=== PATIENT | female | born 1975 | race Caucasian/White ===

== ENCOUNTER → 2017-03-11 | Outpatient (CLI) | payer OTHER ==
[~2017-03-11] MED LIST: ACET50TA PO; FERR325T3 PO; IBUP60TA PO; PREN27TA3 PO; RANI15TA PO
--- NOTE | 2017-03-11 10:20 | REP ---
Bilateral screening digital mammogram: Comparison is 06/16/2014. There are no palpable abnormalities or other breast complaints. The patient states she/he had a clinical breast exam in 01/2017. The patient has a Tyrer-Cuzick lifetime risk of malignancy of 20.4%. Therefore, consideration might be given to breast MRI. Biannual breast MRI could be alternated with biannual mammography. MRS INFORMATION HERE There is moderately dense heterogeneous breast parenchyma. The breast density has slightly decreased. There are benign calcifications. There has been no interval development of masses, areas of structural distortion or clusters of microcalcifications typical of malignancy. Impression: There is no evidence of malignancy. BI-RADS category 2 benign findings. Lifetime risk of breast malignancy is 20.4% as discussed above, therefore, periodic breast MRI might also be considered as discussed above. Consider alternating breast MRI every other year with mammography in the intervening years. This mammogram was interpreted with the aid of an FDA-approved computer-aided detection system. A. Negative x-ray reports should not delay biopsy if a dominant or clinically suspicious mass is present. B. Not all breast cancers are identified by x-ray. C. Adenosis and dense breasts may obscure an underlying neoplasm. The patient letter being requested is M1.
== END ==
LOC: M WHC 08:57
PROVIDERS: ATTEND Obstetrics & Gynecology
DX: Z12.31 Encounter for screening mammogram for malignant neoplasm of breast (principal)

== ENCOUNTER → 2023-06-22 | Outpatient (REF) | payer OTHER ==
[~2023-06-22] MED LIST changes: -ACET50TA PO; +IBUP600T42 PO; -IBUP60TA PO; +MAPA500T2 PO
[2023-06-22 13:38] LABS: THYROID STIMULATING HORMONE 1.974 uIU/ML (0.55-4.78)
[2023-06-22 13:40] LABS: FREE T4 1.04 NG/DL (0.89-1.76)
[2023-06-22 13:42] LABS: ALBUMIN 3.6 G/DL (3.2-5.2); ALKALINE PHOSPHATASE 69 U/L (46-116); ALT/SGPT 43 U/L (7.0-40); AST/SGOT 26 U/L (<34); BILIRUBIN,TOTAL 0.7 MG/DL (0.3-1.2); BLOOD UREA NITROGEN 11 MG/DL (9-23); CALCIUM LEVEL 8.6 MG/DL (8.5-10.1); CARBON DIOXIDE LEVEL 28 MMOL/L (20-31); CHLORIDE LEVEL 106 MMOL/L (98-107); CHOLESTEROL LEVEL 169 MG/DL (<200); CHOLESTEROL RISK RATIO 5.28 (<5); CREATININE FOR GFR 0.67 MG/DL (0.55-1.30); GLOMERULAR FILTRATION RATE > 60.0 (>58); GLUCOSE, FASTING 96 MG/DL (60-100); LDL CHOLESTEROL 90.2 MG/DL (<100); POTASSIUM SERUM 4.5 MMOL/L (3.5-5.1); SODIUM LEVEL 139 MMOL/L (136-145); TOTAL PROTEIN 6.8 G/DL (5.7-8.2); TRIGLYCERIDES LEVEL 234 MG/DL (<150)
== END ==
LOC: M LAB REF 11:36
PROVIDERS: ATTEND Family Medicine Addiction Medicine
DX: I10 Essential (primary) hypertension (principal)

== ENCOUNTER → 2023-08-12 | Outpatient (REF) | payer OTHER | LOC: M SFHCWAGY 18:16 | PROVIDERS: ATTEND Nurse Practitioner Family | DX: Z12.4 Encounter for screening for malignant neoplasm of cervix (principal) ==

== ENCOUNTER → 2023-08-26 | Outpatient (CLI) | payer OTHER | LOC: M PLALAB 08:40 | PROVIDERS: ATTEND Nurse Practitioner Family | DX: Z80.3 Family history of malignant neoplasm of breast (principal); Z80.0 Family history of malignant neoplasm of digestive organs ==

== ENCOUNTER → 2023-08-26 | Outpatient (CLI) | payer OTHER | LOC: M WHC 08:37 | PROVIDERS: ATTEND Nurse Practitioner Family | DX: Z12.31 Encounter for screening mammogram for malignant neoplasm of breast (principal) ==

== ENCOUNTER → 2023-10-15 | Outpatient (REF) | payer OTHER ==
[2023-10-15 13:43] LABS: THYROID STIMULATING HORMONE 2.905 uIU/ML (0.55-4.78)
[2023-10-15 13:46] LABS: FREE T4 0.85 NG/DL (0.89-1.76)
[2023-10-15 13:53] LABS: ALBUMIN 3.6 G/DL (3.2-5.2); ALKALINE PHOSPHATASE 75 U/L (46-116); ALT/SGPT 42 U/L (7.0-40); AST/SGOT 24 U/L (<34); BLOOD UREA NITROGEN 12 MG/DL (9-23); CALCIUM LEVEL 9.3 MG/DL (8.5-10.1); CARBON DIOXIDE LEVEL 27 MMOL/L (20-31); CHLORIDE LEVEL 106 MMOL/L (98-107); CHOLESTEROL LEVEL 188 MG/DL (<200); CHOLESTEROL RISK RATIO 4.66 (<5); GLOMERULAR FILTRATION RATE > 60.0 (>58); GLUCOSE, FASTING 95 MG/DL (60-100); HDL CHOLESTEROL 40.3 MG/DL (>40); LDL CHOLESTEROL 115.3 MG/DL (<100); NON-HDL-C 147.7 MG/DL; POTASSIUM SERUM 4.5 MMOL/L (3.5-5.1); SODIUM LEVEL 138 MMOL/L (136-145); TOTAL PROTEIN 6.7 G/DL (5.7-8.2); TRIGLYCERIDES LEVEL 162 MG/DL (<150)
== END ==
LOC: M LAB REF 12:57
PROVIDERS: ATTEND Family Medicine Addiction Medicine
DX: I10 Essential (primary) hypertension (principal)

== ENCOUNTER → 2023-12-16 | Outpatient (CLI) | payer OTHER | LOC: M RAD 09:34 | PROVIDERS: ATTEND Physician Assistant | DX: R05.3 Chronic cough (principal) ==

== ENCOUNTER 2024-03-22 15:30 | Emergency (ER) | payer OTHER ==
[~2024-03-22] VITALS: Ht 170.2 cm; Wt 130.5 kg
[2024-03-22 15:39] VITALS: TEMP 98.9
[2024-03-22] MEDS ORDERED: MORPHINE 2 MG/ML 1ML VIAL IV PRN (15:50)
[2024-03-22] MEDS: ONDANSETRON 4MG 2ML VIAL IV ONE (15:50)
[2024-03-22 15:52] LABS: BASO # 0.1 10^3/uL (0.0-0.2); BASO % 0.6 % (0.0-1.0); EOS # 0.1 10^3/uL (0.0-0.5); EOS % 1.7 % (0.0-3.0); HEMATOCRIT 40.4 % (36.0-47.0); HEMOGLOBIN 13.6 g/dl (12.0-15.5); LYMPH % 35.5 % (24.0-44.0); MEAN CORPUSCULAR HEMOGLOBIN 29.4 pg (27.0-33.0); MEAN CORPUSCULAR HGB CONC 33.7 g/dl (32.0-36.5); MEAN CORPUSCULAR VOLUME 87.4 fl (80.0-96.0); MONO # 0.6 10^3/uL (0.0-0.8); MONO % 6.9 % (2.0-8.0); NEUTROPHILS # 4.6 10^3/uL (1.5-8.5); NEUTROPHILS % 54.9 % (36.0-66.0); PLATELET COUNT, AUTOMATED 260 10^3/uL (150-450); RED BLOOD COUNT 4.62 10^6/uL (4.00-5.40); WHITE BLOOD COUNT 8.4 10^3/uL (4.0-10.0)
[2024-03-22] MEDS ORDERED: ISOVUE-370 76% 100ML VIAL As Ordered ONE (15:54)
[2024-03-22] MEDS: NS (Normal Saline) 0.9% 1,000 ML IV ONE (15:54)
[2024-03-22 16:16] LABS: LIPASE 34 U/L (12-53)
[2024-03-22 16:17] LABS: CK-MB VALUE MASS 2.3 NG/ML (<3.6)
[2024-03-22 16:18] LABS: ALBUMIN 4.1 G/DL (3.2-5.2); ALKALINE PHOSPHATASE 82 U/L (35-104); ALT/SGPT 29 U/L (7.0-40); AMYLASE 81 U/L (30-118); AST/SGOT 21 U/L (<34); BILIRUBIN,DIRECT 0.2 MG/DL (<0.4); BILIRUBIN,TOTAL 0.8 MG/DL (0.3-1.2); BLOOD UREA NITROGEN 11 MG/DL (9-23); CALCIUM LEVEL 9.4 MG/DL (8.5-10.1); CARBON DIOXIDE LEVEL 24 MMOL/L (20-31); CHLORIDE LEVEL 104 MMOL/L (98-107); CPK CREATINE PHOSPHOKINASE 233 U/L (34-145); CREATININE FOR GFR 0.74 MG/DL (0.55-1.30); GLOMERULAR FILTRATION RATE > 60.0 (>58); GLUCOSE, FASTING 101 MG/DL (60-100); MB/CK RELATIVE INDEX 0.98 (< OR =4); POTASSIUM SERUM 3.4 MMOL/L (3.5-5.1); SODIUM LEVEL 139 MMOL/L (136-145); TOTAL PROTEIN 7.8 G/DL (5.7-8.2)
[2024-03-22] MEDS: ACETAMINOPHEN *IV* 1,000 MG in IV 1 EA IV ONE (16:20)
[2024-03-22 16:45] LABS: INR 0.9; PROTHROMBIN TIME 12.5 SECONDS (12.5-14.5)
[2024-03-22] MEDS: CYCLOBENZAPRINE 5MG TABLET PO ONE (16:48)
[2024-03-22] MEDS: KETOROLAC 30 MG/ML 1ML VIAL IV ONE (16:48)
[2024-03-22 17:25] LABS: CK-MB VALUE MASS 2.1 NG/ML (<3.6)
[2024-03-22 17:27] LABS: MB/CK RELATIVE INDEX 1.07 (< OR =4)
[2024-03-22 17:30] VITALS: BP 136/81; O2SAT 100
[2024-03-22] MEDS ORDERED: CYCL5TAB4 PO (17:58)
== END 2024-03-22 18:12 | disposition home or self-care (01) ==
LOC: EDBD 15:30 → M ED 15:30
DX: M54.50 Low back pain, unspecified (principal); R10.9 Unspecified abdominal pain; F41.9 Anxiety disorder, unspecified; I10 Essential (primary) hypertension; Z79.899 Other long term (current) drug therapy
CPT/HCPCS: 70450; 71045; 71275; 74174; 80047; 80048; 80076; 82150; 82550; 82553; 83605; 83690; 84484; 85025; 85610; 85730; 86850; 86900; 86901; 87040; 93005; 93041; 96374; 96375; 99285; J0131; J1885; Q9967

== ENCOUNTER → 2024-03-29 | Outpatient (CLI) | payer OTHER ==
[~2024-03-29] MED LIST changes: +CYCL5TAB4 PO
== END ==
LOC: M LAB 14:52
PROVIDERS: ATTEND Student in an Organized Health Care Education/Training Program
DX: R89.9 Unspecified abnormal finding in specimens from other organs, systems and tissues (principal)

== ENCOUNTER → 2024-04-04 | Outpatient (CLI) | payer OTHER ==
[~2024-04-04] MED LIST changes: +ISOVUE-370 76% 100ML VIAL As Ordered ONE
== END ==
LOC: M RAD 16:59
PROVIDERS: ATTEND Student in an Organized Health Care Education/Training Program
DX: M47.812 Spondylosis without myelopathy or radiculopathy, cervical region (principal); M46.02 Spinal enthesopathy, cervical region; M50.323 Other cervical disc degeneration at C6-C7 level; M51.34 Other intervertebral disc degeneration, thoracic region; M51.360 Other intervertebral disc degeneration, lumbar region with discogenic back pain only
CPT/HCPCS: 72126; 72129; Q9967

== ENCOUNTER → 2024-10-25 | Outpatient (REF) | payer OTHER ==
[~2024-10-25] MED LIST changes: -ISOVUE-370 76% 100ML VIAL As Ordered ONE
[2024-10-25 12:36] LABS: ALT/SGPT 26 U/L (7.0-40); AST/SGOT 24 U/L (<34); CALCIUM LEVEL 8.4 MG/DL (8.5-10.1); CARBON DIOXIDE LEVEL 31 MMOL/L (20-31); CHLORIDE LEVEL 101 MMOL/L (98-107); CHOLESTEROL LEVEL 182 MG/DL (<200); CHOLESTEROL RISK RATIO 4.19 (<5); CREATININE FOR GFR 0.72 MG/DL (0.55-1.30); GLOMERULAR FILTRATION RATE > 90.0 (>58); LDL CHOLESTEROL 108.0 MG/DL (<100); NON-HDL-C 138.6 MG/DL; POTASSIUM SERUM 3.9 MMOL/L (3.5-5.1); SODIUM LEVEL 141 MMOL/L (136-145); TRIGLYCERIDES LEVEL 153 MG/DL (<150)
[2024-10-25 12:38] LABS: FREE T4 1.08 NG/DL (0.89-1.76)
== END ==
LOC: M LAB REF 12:04
PROVIDERS: ATTEND Family Medicine Addiction Medicine
DX: I10 Essential (primary) hypertension (principal)

== ENCOUNTER → 2024-11-09 | Outpatient (CLI) | payer OTHER | LOC: M RAD 13:36 | PROVIDERS: ATTEND Family Medicine Addiction Medicine | DX: M47.22 Other spondylosis with radiculopathy, cervical region (principal) ==